=== PATIENT | male | born 1985 | race Caucasian/White ===

== ENCOUNTER 2021-11-01 08:29 | Emergency (ER) | payer BC, SELFPAY ==
--- NOTE | 2021-11-01 08:32 | ED.GENADULT ---
HPI - General Adult General Chief complaint: Skin/Abscess/Foreign Body Stated complaint: Allergic Reaction Time Seen by Provider: 11/01/21 08:31 Source: patient Mode of arrival: ambulatory Limitations: no limitations History of Present Illness HPI narrative: 36-year-old male patient presents to the [facility] with complaints of allergic reaction that started yesterday morning. Patient states he feels like his hands are very itchy and swollen. Patient states he has also noticed a little bit of swelling to his lips. Denies any trouble swallowing or trouble breathing. Patient states he has been taking Zyrtec yesterday and today. Patient was recently diagnosed with COVID-19 about 8 days ago. Patient is fully vaccinated against COVID-19. Denies getting a flu shot this year. Patient states he has been using a new deodorant but denies any rashes to the area where he has been placing new deodorant. Denies any allergies to food that he is aware of. Related Data Home Medications Medication Instructions Recorded Confirmed buprenorphine-naloxone [Suboxone] 1 film [place] DAILY 07/19/19 11/01/21 Allergies Allergy/AdvReac Type Severity Reaction Status Date / Time codeine Allergy Unknown Unknown Verified 11/01/21 08:46 Penicillins Allergy Itching Verified 11/01/21 08:47 Review of Systems Review of Systems: CONSTITUTIONAL: Denies fever, chills, or sweats. EYES: Denies visual changes, redness, or discharge. ENT: Denies rhinorrhea, congestion, sore throat, or otalgia. Positive lip swelling CARDIOVASCULAR: Denies chest pain, palpitations, or edema. RESPIRATORY: Denies cough or dyspnea. GASTROINTESTINAL: Denies abdominal pain, nausea, vomiting, or diarrhea. GENITOURINARY: Denies dysuria or hematuria. SKIN: Positive rash or itching. MUSCULOSKELETAL: Denies back pain, joint pain, or myalgia. NEUROLOGIC: Denies headache, numbness, or weakness. PSYCHIATRIC: Denies anxiety or depression. FORMERLY [facility] Past Medical History Medical History (Updated 11/01/21 @ 08:51 by PARISA Connolly) Anxiety No pertinent family history Opioid abuse currently on suboxone Surgical History Surgical History No significant past surgical history Comments At the time of my signature I agree with nursing past medical history, surgical, social, and family history. There is no relevant family history pertinent to the presenting complaint. Exam Narrative: GENERAL: Well-appearing, well-nourished, and in no acute distress. HEAD: Normocephalic, atraumatic. EYES: PERRLA and EOMI. ENT: Nares clear, no rhinorrhea or epistaxis. Mucous membranes moist. Posterior pharynx no erythema or tonsillar lodgment, exudates or lesions present. Bilateral TMs are clear no erythema or foreign bodies in the canal. No obvious angioedema noted at this time. NECK: Supple. No lymphadenopathy CHEST: Clear to auscultation. No respiratory distress. HEART: Regular rate and rhythm. No murmur heard. Normal peripheral pulses. ABDOMEN: Soft, nontender, nondistended, normal active bowel sounds. EXTREMITIES: Normal range of motion. No edema. SKIN: Warm, dry, positive redness and swelling noted to bilateral hands with complaints of itchiness. NEURO: No focal deficits. Alert and oriented x3. Course Course Level of Care: Express Care Visit Vital Signs Vital signs: Vital Signs Temperature 37.4 C 11/01/21 08:36 Pulse Rate 92 11/01/21 08:36 Respiratory Rate 16 11/01/21 08:36 Blood Pressure 133/81 11/01/21 08:36 Pulse Oximetry 98 11/01/21 08:36 Temperature 37.4 C 11/01/21 08:36 Pulse Rate 92 11/01/21 08:36 Respiratory Rate 16 11/01/21 08:36 Blood Pressure 133/81 11/01/21 08:36 Pulse Oximetry 98 11/01/21 08:36 Vital signs reviewed The patient has been informed that they may have pre-hypertension or Hypertension based on a BP reading in the department. I recommend that the patient call the primar
[2021-11-01 08:36] VITALS: BP 133/81; PULSE 92; RESP 16; TEMP 37.4; O2SAT 98
[2021-11-01] MEDS: diphenhydrAMINE HCl CAP 25 MG CAPSULE 50 MG PO (09:01)
== END 2021-11-01 09:05 | disposition home or self-care (01) ==
PROVIDERS: Emergency Provider Nurse Practitioner Family
DX: R22.0 Localized swelling, mass and lump, head (principal); L29.9 Pruritus, unspecified; T78.40XA Allergy, unspecified, initial encounter
CPT/HCPCS: 99213; A9270; G0463